=== PATIENT | female | born 1955 | race Two or more races ===

== ENCOUNTER 2020-11-21 21:34 | Emergency (ER) | payer MEDICARE, OTHER ==
[~2020-11-21] VITALS: Ht 152.4 cm; Wt 68.0 kg
[2020-11-21 21:35] VITALS: BP 164/81
== END 2020-11-21 22:40 | disposition left against medical advice (07) ==
LOC: ER 21:36
DX: R21 Rash and other nonspecific skin eruption (principal); Z53.21 Procedure and treatment not carried out due to patient leaving prior to being seen by health care provider